=== PATIENT | female | born 1970 | race Caucasian/White ===

== ENCOUNTER 2021-07-29 18:42 | Emergency (ER) | payer SELFPAY ==
--- NOTE | 2021-07-29 20:15 | NUR ---
Patient was called to be triaged but was not present in the waiting room or outside of ER
--- NOTE | 2021-07-29 20:20 | NUR ---
Patient was called to be traiged but was not present in the waiting room.
--- NOTE | 2021-07-29 20:58 | NUR ---
Patient was not triaged or seen by [facility].
== END 2021-07-29 20:59 | disposition left against medical advice (07) ==
LOC: ER 18:45
DX: Z53.21 Procedure and treatment not carried out due to patient leaving prior to being seen by health care provider (principal)